=== PATIENT | female | born 1995 | race Two or more races ===

== ENCOUNTER → 2018-09-24 | Outpatient (CLI) | payer BC ==
[~2018-09-24] MED LIST: IOHEXOL 350 MG/ML 100ML IJ ONE; NITROGLYCERIN 0.4 MG SL TAB SL ONE
== END | disposition home or self-care (01) ==
LOC: CT 10:57
PROVIDERS: ATTEND Specialist
DX: I47.2 Ventricular tachycardia (principal); R55 Syncope and collapse
CPT/HCPCS: 75574; Q9967

== ENCOUNTER 2018-10-14 06:20 | Day surgery (SDC) | payer BC ==
[~2018-10-14] VITALS: Ht 177.8 cm; Wt 73.9 kg
[2018-10-14] MEDS ORDERED: MIDAZOLAM HCL 1MG/1ML-2 ML VIAL ONE (07:25)
[2018-10-14] MEDS ORDERED: fentaNYL CITRATE 100 MCG/2 ML VL ONE (07:25)
[2018-10-14] MEDS ORDERED: LIDOCAINE 2%HCL (LOCAL ANESTH.) INJ 20ML MDV ONE (07:25)
[2018-10-14] MEDS ORDERED: ASPirin 81 mg TAB ONE (09:37)
[2018-10-14] MEDS ORDERED: HYDROcodone-ACET 5/325MG TAB PO PRN (10:00)
[2018-10-14] MEDS ORDERED: ACETAMINOPHEN 500 MG TAB PO PRN (10:00)
[2018-10-14] MEDS ORDERED: ONDANSETRON HCL 4 MG/2 ML VIAL IV PRN (10:00)
== END 2018-10-14 16:30 | disposition home or self-care (01) ==
LOC: CATH 06:20
PROVIDERS: ATTEND Specialist
DX: I47.2 Ventricular tachycardia (principal); Z88.0 Allergy status to penicillin; Z88.8 Allergy status to other drugs, medicaments and biological substances; Z79.899 Other long term (current) drug therapy
CPT/HCPCS: 93005; 93654; C1730; C1732; C1893; C1894; J1644; J2250; J3010; J7030; 99152; 99153